=== PATIENT | female | born 1970 | race Caucasian/White ===

== ENCOUNTER 2019-04-08 08:43 | Emergency (ER) | payer OTHER ==
[2019-04-08 08:59] VITALS: BP 110/66
--- NOTE | 2019-04-08 09:33 | UC ---
Ear Complaint HPI - HPI Summary HPI Summary: Pt presents with c/o bilateral ear pain. with right worse than left. Pt has URI like symptoms and PMH Of OM as child. - History of Current Complaint Chief Complaint: UCEar Stated Complaint: BILATERAL EAR COMPLAINT Time Seen by Provider: 04/08/19 09:00 Hx Obtained From: Patient Hx Last Menstrual Period: current ?: No Onset/Duration: Gradual Onset, Lasting Days, Still Present Severity Initially: Mild Severity Currently: Moderate Pain Intensity: 6 Alleviating Factors: Nothing Associated Signs/Symptoms: Positive: Hearing Loss, URI Symptoms - Allergies/Home Medications Allergies/Adverse Reactions: Allergies Allergy/AdvReac Type Severity Reaction Status Date / Time corn Allergy Hives Verified 04/08/19 08:56 gluten Allergy Hives Verified 04/08/19 08:56 PMH/Surg Hx/FS Hx/Imm Hx Previously Healthy: Yes - Surgical History Surgical History: Yes Surgery Procedure, Year, and Place: 2 C-sections, GALLBLADDER. L ACL replacement - Family History Known Family History: Positive: Non-Contributory Negative: Respiratory Disease - Social History Occupation: Employed Full-time Lives: With Family Alcohol Use: Rare Substance Use Type: None Smoking Status (MU): Never Smoked Tobacco Have You Smoked in the Last Year: No Review of Systems All Other Systems Reviewed And Are Negative: Yes Constitutional: Positive: Fatigue Skin: Positive: Negative Eyes: Positive: Negative ENT: Positive: Ear Ache, Sinus Congestion Respiratory: Positive: Negative Cardiovascular: Positive: Negative Gastrointestinal: Positive: Negative Genitourinary: Positive: Negative Motor: Positive: Negative Neurovascular: Positive: Negative Musculoskeletal: Positive: Negative Neurological: Positive: Negative Psychological: Positive: Negative Is Patient Immunocompromised?: No Physical Exam Triage Information Reviewed: Yes Appearance: Well-Appearing Vital Signs: Initial Vital Signs Temp 98.6 F 04/08/19 08:57 Pulse 58 04/08/19 08:57 Resp 14 04/08/19 08:57 BP 110/66 04/08/19 08:57 Pulse Ox 100 04/08/19 08:57 Vital Signs Reviewed: Yes Eye Exam: Normal ENT: Positive: Nasal congestion, TM bulging - bilateral, clear fluid, no erythema Dental Exam: Normal Neck exam: Normal Respiratory Exam: Normal Cardiovascular Exam: Normal Musculoskeletal Exam: Normal Neurological Exam: Normal Psychological Exam: Normal Skin Exam: Normal Ear Complaint Course/Dx - Differential Dx/Diagnosis Differential Diagnosis/HQI/PQRI: Otitis Media, URI Provider Diagnosis: Ear pain, Acute serous otitis media of both ears Discharge ED - Sign-Out/Discharge Documenting (check all that apply): Patient Departure All imaging exams completed and their final reports reviewed: No Studies - Discharge Plan Condition: Stable Disposition: HOME Prescriptions: Fexofenadine/Pseudoephedrine [Lisa-D 24 Hour Tablet] 1 each PO DAILY #7 [id number].er.24h Patient Education Materials: Earache (ED), Serous Otitis Media (ED) Referrals: Leo Chappell MD [Primary Care Provider] - If Needed - Billing Disposition and Condition Condition: STABLE Disposition: Home
== END 2019-04-08 09:39 | disposition home or self-care (01) ==
LOC: UCCORT 08:43
DX: H65.03 Acute serous otitis media, bilateral (principal); R09.81 Nasal congestion; Z91.018 Allergy to other foods
CPT/HCPCS: 99212; G0463